=== PATIENT | male | born 1975 | race Caucasian/White ===

== ENCOUNTER 2022-04-22 00:19 | Emergency (ER) | payer BC ==
[2022-04-22] MEDS: Acetaminophen/HYDROcodone 325-10 MG Tab PO ONE (01:28)
[2022-04-22] MEDS: Ketorolac 30 MG/ML SDV IM ONE (01:29)
[2022-04-22] MEDS: Take Home: Acetaminophen/HYDROcodone 325-5 MG, 5 Tab Pack PO ONE (01:34)
== END 2022-04-22 02:00 | disposition home or self-care (01) ==
LOC: LL.ED 00:19 → SUPCPDRO 00:19 → LL.ED 02:00
DX: S22.31XA Fracture of one rib, right side, initial encounter for closed fracture (principal); F17.210 Nicotine dependence, cigarettes, uncomplicated; W00.0XXA Fall on same level due to ice and snow, initial encounter; Y92.481 Parking lot as the place of occurrence of the external cause
CPT/HCPCS: 71110; 96372; 99283; A9270-GY; J1885